=== PATIENT | male | born 1955 | race Caucasian/White ===

== ENCOUNTER 2017-12-22 15:05 | Inpatient (IN) | payer MEDICARE ==
[~2017-12-22] VITALS: Ht 182.9 cm; Wt 175.6 kg
[2017-12-22 15:41] LABS: PCO2 Arterial 73.2 mmHg (35-45); PO2 Arterial 49.7 mmHg (80-100); pH Blood Arterial 7.33 (7.35-7.45)
[2017-12-22 15:49] LABS: BASOPHILS ABSOLUTE AUTO 0.02 K/mm3 (0.00-0.23); BASOPHILS PERCENT AUTO 0 % (0-2); EOSINOPHILS ABSOLUTE AUTO 0.04 K/mm3 (0.00-0.68); EOSINOPHILS PERCENT AUTO 1 % (0-6); Hematocrit 54.4 % (37.0-53.0); Hemoglobin 16.4 g/dL (13.5-17.5); IMMATURE GRAN ABSOLUTE AUTO 0.05 K/mm3 (0.00-0.10); IMMATURE GRAN PERCENT AUTO 1 % (0-1); LYMPHOCYTES ABSOLUTE AUTO 1.99 K/mm3 (0.84-5.20); LYMPHOCYTES PERCENT AUTO 27 % (21-46); MONOCYTES PERCENT AUTO 8 % (4-13); Mean Corpuscular HGB 28.8 pg (26.0-34.0); Mean Corpuscular HGB Conc 30.1 g/dL (31.5-36.5); Mean Corpuscular Volume 95 fL (80-100); NEUTROPHILS ABSOLUTE AUTO 4.71 K/mm3 (1.96-9.15); NEUTROPHILS PERCENT AUTO 64 % (41-73); Platelet Count 171 K/mm3 (150-400); RDW Coefficient Variation 13.7 % (11.7-14.2); RDW Standard Deviation 48.6 fL (35.1-46.3); White Blood Cell Count 7.41 K/mm3 (4.00-11.30)
[2017-12-22 16:14] LABS: Alanine Aminotransfer (ALT/SGP 42 U/L (12-78); Albumin, Blood 3.3 g/dL (3.4-5.0); Albumin/Globulin Ratio 0.7 (0.8-1.8); Alk Phos 85 U/L (50-136); Anion Gap 3 mmol/L (6-16); Aspartate Aminotrans (AST/SGOT 34 U/L (12-37); Bilirubin, Total 0.7 mg/dL (0.1-1.0); Blood Urea Nitrogen 12 mg/dL (8-24); Bun/Creatinine Ratio 13.1 (12.0-20.0); CO2, Blood 37 mmol/L (21-32); Calcium, Blood 9.1 mg/dL (8.5-10.1); Chloride, Blood 97 mmol/L (98-108); Creatinine, Blood 0.92 mg/dL (0.60-1.20); Glomerular Filtration Rate >60 (60-); Glucose, Blood 124 mg/dL (70-99); Potassium, Blood 4.3 mmol/L (3.5-5.5); Sodium, Blood 137 mmol/L (136-145); Total Protein, Blood 8.3 g/dL (6.4-8.2); Troponin I <0.015 ng/mL (0.000-0.040)
[2017-12-22] MEDS ORDERED: AMLO10 PO (16:17)
[2017-12-22] MEDS ORDERED: BENA20 PO (16:18)
[2017-12-22 19:12] LABS: Influenza A Positive (NEGATIVE); Influenza B Positive (NEGATIVE)
[2017-12-23 04:41] LABS: PCO2 Arterial 70.8 mmHg (35-45); PO2 Arterial 59.8 mmHg (80-100); pH Blood Arterial 7.36 (7.35-7.45)
[2017-12-23 04:48] LABS: BASOPHILS ABSOLUTE AUTO 0.01 K/mm3 (0.00-0.23); BASOPHILS PERCENT AUTO 0 % (0-2); EOSINOPHILS PERCENT AUTO 0 % (0-6); Hematocrit 51.9 % (37.0-53.0); IMMATURE GRAN ABSOLUTE AUTO 0.02 K/mm3 (0.00-0.10); IMMATURE GRAN PERCENT AUTO 0 % (0-1); LYMPHOCYTES ABSOLUTE AUTO 0.86 K/mm3 (0.84-5.20); LYMPHOCYTES PERCENT AUTO 15 % (21-46); MONOCYTES ABSOLUTE AUTO 0.06 K/mm3 (0.16-1.47); MONOCYTES PERCENT AUTO 1 % (4-13); Mean Corpuscular HGB 28.7 pg (26.0-34.0); Mean Corpuscular HGB Conc 30.8 g/dL (31.5-36.5); Mean Corpuscular Volume 93 fL (80-100); Mean Platelet Volume 9.5 fL (9.1-12.4); NEUTROPHILS ABSOLUTE AUTO 4.79 K/mm3 (1.96-9.15); NEUTROPHILS PERCENT AUTO 84 % (41-73); Platelet Count 148 K/mm3 (150-400); RDW Coefficient Variation 13.5 % (11.7-14.2); RDW Standard Deviation 46.4 fL (35.1-46.3); Red Blood Cell Count 5.57 M/mm3 (4.30-5.90); White Blood Cell Count 5.74 K/mm3 (4.00-11.30)
[2017-12-23 05:29] LABS: Alanine Aminotransfer (ALT/SGP 38 U/L (12-78); Albumin, Blood 2.9 g/dL (3.4-5.0); Albumin/Globulin Ratio 0.6 (0.8-1.8); Alk Phos 71 U/L (50-136); Anion Gap 7 mmol/L (6-16); Aspartate Aminotrans (AST/SGOT 44 U/L (12-37); Bilirubin, Total 0.7 mg/dL (0.1-1.0); Blood Urea Nitrogen 14 mg/dL (8-24); Bun/Creatinine Ratio 20.5 (12.0-20.0); CO2, Blood 30 mmol/L (21-32); Calcium, Blood 8.8 mg/dL (8.5-10.1); Chloride, Blood 98 mmol/L (98-108); Creatinine, Blood 0.68 mg/dL (0.60-1.20); Glomerular Filtration Rate >60 (60-); Glucose, Blood 141 mg/dL (70-99); Potassium, Blood 5.4 mmol/L (3.5-5.5); Sodium, Blood 135 mmol/L (136-145); Total Protein, Blood 7.9 g/dL (6.4-8.2)
[2017-12-24] MEDS ORDERED: ALBU2.5V5 NEB (12:38)
[2017-12-24] MEDS ORDERED: BUDE.5 NEB (12:39)
[2017-12-24] MEDS ORDERED: GUAI600T33 PO (12:45)
[2017-12-24] MEDS ORDERED: OSEL75CA PO (12:47)
[2017-12-24] MEDS ORDERED: CEFU50SU PO (12:48)
== END 2017-12-24 14:00 | disposition home or self-care (01) | DRG 193 ==
LOC: ER 15:05 → PCU 17:44
PROVIDERS: Family Medicine; Internal Medicine
PROC: 5A09357 Assistance with Respiratory Ventilation, Less than 24 Consecutive Hours, Continuous Positive Airway Pressure (ICD-10-PCS; principal; 2017-12-22)
DX: J10.1 Influenza due to other identified influenza virus with other respiratory manifestations (principal); J96.21 Acute and chronic respiratory failure with hypoxia; J96.22 Acute and chronic respiratory failure with hypercapnia; E66.2 Morbid (severe) obesity with alveolar hypoventilation; Z68.43 Body mass index [BMI] 50.0-59.9, adult; J45.909 Unspecified asthma, uncomplicated; G47.33 Obstructive sleep apnea (adult) (pediatric); I10 Essential (primary) hypertension; I87.2 Venous insufficiency (chronic) (peripheral); Z79.899 Other long term (current) drug therapy
CPT/HCPCS: 36415; 36600; 71045; 71260; 80053; 82803; 83880; 84484; 85025; 87070; 87205; 87804; 93005; 93010; 93306; 94640; 94644; 94660; 94762; 96365; 96375; 99285; J1650; J1940; J1956; J2930; Q9967

== ENCOUNTER → 2019-01-10 | Outpatient (CLI) | payer MEDICARE ==
[~2019-01-10] MED LIST: ALBU2.5V5 NEB; AMLO10 PO; BENA20 PO; BUDE.5 NEB; CEFU50SU PO; GUAI600T33 PO; OSEL75CA PO
== END ==
LOC: LAB SHORT 13:56 → LAB EV 13:56
DX: H10.33 Unspecified acute conjunctivitis, bilateral (principal)
CPT/HCPCS: 87070; 87205

== ENCOUNTER 2021-04-11 07:38 | Day surgery (SDC) | payer MEDICARE ==
[~2021-04-11] VITALS: Ht 180.3 cm; Wt 180.0 kg
[~2021-04-11 07:38] MED LIST changes: +MULVITA PO
--- NOTE | 2021-04-11 08:17 | NUR ---
History, Chart, Medications and Allergies reviewed before start of procedure. Lungs clear T/O to Auscultation. Patient confirms NPO status and agrees with scheduled surgery. Pre-Op teaching done. Pt verbalizes understanding. Patient States Post-Procedure ride home has been arranged. Patient states colon prep results clear.
--- NOTE | 2021-04-11 08:55 | NUR ---
04/11/21 0855 JONNA KIMBALL History, Chart, Medications and Allergies reviewed before start of procedure. 3-LEAD EKG REVIEWED WITH PHYSICIAN PRIOR TO START OF PROCEDURE. O2 VIA NON REBREATHER INTACT THROUGHOUT SEDATION/PROCEDURE. MONITOR INTACT WITH CONTINUOUS PULSE OXIMETRY AND INTERMITTENT BP. MAC WITH DR. MAK.
--- NOTE | 2021-04-11 10:16 | NUR ---
Patient up to Ambulate independently. Gait steady. Discharge instructions reviewed with patient. Patient verbalizes understanding. Copy given to patient to take home. Discharged via wheelchair to private car for ride home WITH .
== END 2021-04-11 23:13 | disposition home or self-care (01) ==
LOC: ORSCMMR 07:38 → ORD 09:15 → ORSCMMR 09:15
PROVIDERS: Internal Medicine Gastroenterology
PROC: 0DBN8ZX Excision of Sigmoid Colon, Via Natural or Artificial Opening Endoscopic, Diagnostic (ICD-10-PCS; principal; 2021-04-11 09:15)
PROC: 0DBM8ZX Excision of Descending Colon, Via Natural or Artificial Opening Endoscopic, Diagnostic (ICD-10-PCS; principal; 2021-04-11 09:15)
PROC: 0DBH8ZX Excision of Cecum, Via Natural or Artificial Opening Endoscopic, Diagnostic (ICD-10-PCS; principal; 2021-04-11 09:15)
PROC: 0DBL8ZX Excision of Transverse Colon, Via Natural or Artificial Opening Endoscopic, Diagnostic (ICD-10-PCS; principal; 2021-04-11 09:15)
DX: Z12.11 Encounter for screening for malignant neoplasm of colon (principal); D12.0 Benign neoplasm of cecum; D12.3 Benign neoplasm of transverse colon; D12.4 Benign neoplasm of descending colon; Z85.038 Personal history of other malignant neoplasm of large intestine; Z80.0 Family history of malignant neoplasm of digestive organs; E66.01 Morbid (severe) obesity due to excess calories; Z68.43 Body mass index [BMI] 50.0-59.9, adult; I10 Essential (primary) hypertension; G47.33 Obstructive sleep apnea (adult) (pediatric); Z79.899 Other long term (current) drug therapy
CPT/HCPCS: 88305; 93005; 93010; J2704; J7120

== ENCOUNTER 2021-12-04 06:40 | Day surgery (SDC) | payer MEDICARE ==
[~2021-12-04] VITALS: Ht 182.9 cm; Wt 171.1 kg
--- NOTE | 2021-12-04 08:09 | NUR ---
12/04/21 0809 JONNA KIMBALL History, Chart, Medications and Allergies reviewed before start of procedure. 3-LEAD EKG REVIEWED WITH PHYSICIAN PRIOR TO START OF PROCEDURE. MONITOR INTACT WITH CONTINUOUS PULSE OXIMETRY AND INTERMITTENT BP. O2 VIA NONREBREATHER INTACT THROUGHOUT SEDATION/PROCEDURE. GENERAL WITH DR. BRAMBILA.
--- NOTE | 2021-12-04 08:50 | NUR ---
PT TOLERATING PO FLUIDS, REQUESTING TO GO HOME.
--- NOTE | 2021-12-04 09:06 | NUR ---
Patient up to Ambulate independently. Gait steady. Discharge instructions reviewed with patient. Patient verbalizes understanding. Copy given to patient to take home. Patient States Post-Procedure ride home has been arranged. Discharged via wheelchair to private car for ride home. ALL BELONGINGS RETURNED TO PATIENT.
== END 2021-12-05 22:57 | disposition home or self-care (01) ==
LOC: ORSCMMR 06:40 → ORD 08:00 → ORSCMMR 12-05 22:57
PROVIDERS: Internal Medicine Gastroenterology
PROC: 0DBM8ZX Excision of Descending Colon, Via Natural or Artificial Opening Endoscopic, Diagnostic (ICD-10-PCS; principal; 2021-12-04 08:00)
PROC: 0DBH8ZX Excision of Cecum, Via Natural or Artificial Opening Endoscopic, Diagnostic (ICD-10-PCS; principal; 2021-12-04 08:00)
DX: Z85.038 Personal history of other malignant neoplasm of large intestine (principal); D12.4 Benign neoplasm of descending colon; D12.0 Benign neoplasm of cecum; Z80.0 Family history of malignant neoplasm of digestive organs; E66.01 Morbid (severe) obesity due to excess calories; Z68.43 Body mass index [BMI] 50.0-59.9, adult; I10 Essential (primary) hypertension; G47.33 Obstructive sleep apnea (adult) (pediatric); Z79.899 Other long term (current) drug therapy
CPT/HCPCS: 88305; J2704; J7120

== ENCOUNTER 2023-04-04 15:14 | Observation (INO) | payer MEDICARE ==
[~2023-04-04] VITALS: Ht 182.9 cm; Wt 182.3 kg
[2023-04-04 15:46] LABS: BASOPHILS ABSOLUTE AUTO 0.08 K/mm3 (0.00-0.23); BASOPHILS PERCENT AUTO 0 % (0-2); EOSINOPHILS ABSOLUTE AUTO 0.01 K/mm3 (0.00-0.68); EOSINOPHILS PERCENT AUTO 0 % (0-6); Hematocrit 48.2 % (37.0-53.0); IMMATURE GRAN ABSOLUTE AUTO 0.16 K/mm3 (0.00-0.10); IMMATURE GRAN PERCENT AUTO 1 % (0-1); LYMPHOCYTES ABSOLUTE AUTO 0.55 K/mm3 (0.84-5.20); LYMPHOCYTES PERCENT AUTO 2 % (21-46); MONOCYTES ABSOLUTE AUTO 1.33 K/mm3 (0.16-1.47); MONOCYTES PERCENT AUTO 6 % (4-13); Mean Corpuscular HGB 29.4 pg (26.0-34.0); Mean Corpuscular HGB Conc 33.2 g/dL (31.5-36.5); Mean Corpuscular Volume 89 fL (80-100); Mean Platelet Volume 9.3 fL (9.1-12.4); NEUTROPHILS ABSOLUTE AUTO 22.03 K/mm3 (1.96-9.15); NEUTROPHILS PERCENT AUTO 91 % (41-73); Platelet Count 196 K/mm3 (150-400); RDW Coefficient Variation 13.4 % (11.7-14.2); RDW Standard Deviation 43.7 fL (35.1-46.3); Red Blood Cell Count 5.44 M/mm3 (4.30-5.90); White Blood Cell Count 24.16 K/mm3 (4.00-11.30)
[2023-04-04 16:01] LABS: Albumin, Blood 3.7 g/dL (3.4-5.0); Albumin/Globulin Ratio 0.9 (0.8-1.8); Bilirubin, Total 0.9 mg/dL (0.1-1.0); Bun/Creatinine Ratio 14.7 (12.0-20.0); Calcium, Blood 9.4 mg/dL (8.5-10.1); Creatinine, Blood 0.95 mg/dL (0.60-1.20); Potassium, Blood 3.7 mmol/L (3.5-5.5); Total Protein, Blood 7.7 g/dL (6.4-8.2)
[2023-04-04 16:46] LABS: Source, Urine Voided
[2023-04-04 16:52] LABS: Appearance, Urine Hazy (Clear); Bilirubin, Urine Neg (Neg); Blood, Urine 3+ (Neg); Color, Urine Yellow (P-Yellow); Glucose Qualitative, Urine Neg (Neg); Ketones, Urine 1+ (Neg); Leukocyte Esterase, Urine 3+ (Neg); Nitrite, Urine Neg (Neg); Protein, Urine 3+ (Neg); Specific Gravity, Urine 1.015 (1.003-1.022); Urobilinogen, Urine NORM (Normal)
[2023-04-04 17:34] LABS: White Blood Cells, Urine 50-100 /hpf (0-5)
[2023-04-04 17:35] LABS: Bacteria Many /hpf; Squamous Epithelial Cells Rare /hpf (Few)
[2023-04-04 21:19] VITALS: BP 148/79
[2023-04-05 03:37] VITALS: BP 127/77
[2023-04-05 05:02] LABS: BASOPHILS ABSOLUTE AUTO 0.06 K/mm3 (0.00-0.23); BASOPHILS PERCENT AUTO 0 % (0-2); EOSINOPHILS PERCENT AUTO 0 % (0-6); Hematocrit 44.9 % (37.0-53.0); Hemoglobin 15.1 g/dL (13.5-17.5); IMMATURE GRAN ABSOLUTE AUTO 0.13 K/mm3 (0.00-0.10); IMMATURE GRAN PERCENT AUTO 1 % (0-1); LYMPHOCYTES ABSOLUTE AUTO 1.22 K/mm3 (0.84-5.20); LYMPHOCYTES PERCENT AUTO 5 % (21-46); MONOCYTES ABSOLUTE AUTO 1.12 K/mm3 (0.16-1.47); MONOCYTES PERCENT AUTO 5 % (4-13); Mean Corpuscular HGB 29.8 pg (26.0-34.0); Mean Corpuscular HGB Conc 33.6 g/dL (31.5-36.5); Mean Corpuscular Volume 89 fL (80-100); Mean Platelet Volume 9.5 fL (9.1-12.4); NEUTROPHILS ABSOLUTE AUTO 20.54 K/mm3 (1.96-9.15); NEUTROPHILS PERCENT AUTO 89 % (41-73); Platelet Count 181 K/mm3 (150-400); RDW Coefficient Variation 13.7 % (11.7-14.2); RDW Standard Deviation 44.5 fL (35.1-46.3); Red Blood Cell Count 5.06 M/mm3 (4.30-5.90); White Blood Cell Count 23.07 K/mm3 (4.00-11.30)
[2023-04-05 05:20] LABS: Albumin, Blood 3.2 g/dL (3.4-5.0); Albumin/Globulin Ratio 0.8 (0.8-1.8); Bilirubin, Total 1.1 mg/dL (0.1-1.0); Bun/Creatinine Ratio 16.5 (12.0-20.0); Creatinine, Blood 0.79 mg/dL (0.60-1.20); Potassium, Blood 3.8 mmol/L (3.5-5.5); Total Protein, Blood 7.2 g/dL (6.4-8.2)
--- NOTE | 2023-04-05 05:57 | NUR ---
ADMITTED FROM ED AROUND 2100 LAST NIGHT. DENIES SKIN ISSUES, NONE NOTED. AO, INDEPENDENT, ANXIOUS, PLEASANT. FREQUEMCY WITH VOIDING. TELE NS IN 'S. PT STATES HE FEELS SYMPTOMS ARE IMPROVING COMPARED TO ARRIVAL AT ED.
[2023-04-05 07:39] VITALS: BP 158/93
[2023-04-05] MEDS ORDERED: LEVFLO500 PO (15:45)
[2023-04-05] MEDS ORDERED: TYLENOL325 M1 PO (15:45)
[2023-04-05] MEDS ORDERED: VISBIOME 112.51 EACH PO (15:46)
--- NOTE | 2023-04-05 16:18 | NUR ---
DISCHARGE SUMMARY DISCHARGE, MEDICATION, AND FOLLOWUP INSTRUCTIONS GIVEN TO PT. PT VOICED COMPLETE UNDERSTANDING AND HAS NO QUESTIONS AT THIS TIME. IV REMOVED WITH CATHETER TIP INTACT. PT WHEELED DOWN TO RIDE.
== END 2023-04-05 16:08 | disposition home or self-care (01) ==
LOC: ER 15:14 → MEDS 15:15 → ERHOLD 15:15 → MEDS 21:05
PROVIDERS: Student in an Organized Health Care Education/Training Program; ADMIT Internal Medicine
DX: A41.9 Sepsis, unspecified organism (principal); N39.0 Urinary tract infection, site not specified; B96.89 Other specified bacterial agents as the cause of diseases classified elsewhere; I10 Essential (primary) hypertension; R00.0 Tachycardia, unspecified; E66.01 Morbid (severe) obesity due to excess calories; G47.33 Obstructive sleep apnea (adult) (pediatric)
CPT/HCPCS: 36415; 80053; 81001; 83605; 83880; 85025; 87040; 87077; 87086; 87186; 94660; 96361; 96372; 96374; 99284-25; A9270; G0378; J0696; J1650; J7030

== ENCOUNTER 2024-01-26 18:18 | Inpatient (IN) | payer MEDICARE ==
[~2024-01-26] VITALS: Ht 182.9 cm; Wt 178.3 kg
[~2024-01-26 18:18] MED LIST changes: +CIPR500 PO; +LEVFLO500 PO; +LISI20 PO; +METO50ER PO; +METR500 PO; +TYLENOL325 M1 PO; +VISBIOME 112.51 EACH PO
[2024-01-26 19:26] LABS: BASOPHILS ABSOLUTE AUTO 0.06 K/mm3 (0.00-0.23); BASOPHILS PERCENT AUTO 0 % (0-2); EOSINOPHILS ABSOLUTE AUTO 0.27 K/mm3 (0.00-0.68); EOSINOPHILS PERCENT AUTO 1 % (0-6); Hematocrit 27.2 % (37.0-53.0); Hemoglobin 8.6 g/dL (13.5-17.5); IMMATURE GRAN ABSOLUTE AUTO 0.44 K/mm3 (0.00-0.10); IMMATURE GRAN PERCENT AUTO 2 % (0-1); LYMPHOCYTES ABSOLUTE AUTO 1.66 K/mm3 (0.84-5.20); LYMPHOCYTES PERCENT AUTO 7 % (21-46); MONOCYTES ABSOLUTE AUTO 1.02 K/mm3 (0.16-1.47); MONOCYTES PERCENT AUTO 4 % (4-13); Mean Corpuscular HGB 29.4 pg (26.0-34.0); Mean Corpuscular HGB Conc 31.6 g/dL (31.5-36.5); Mean Corpuscular Volume 93 fL (80-100); Mean Platelet Volume 8.6 fL (9.1-12.4); NEUTROPHILS ABSOLUTE AUTO 19.64 K/mm3 (1.96-9.15); NEUTROPHILS PERCENT AUTO 85 % (41-73); NRBC ABSOLUTE 0.04 K/mm3 (0.00-0.02); NRBC Auto 0.2 /100 WBC (0.0-0.2); Platelet Count 373 K/mm3 (150-400); RDW Standard Deviation 49.3 fL (35.1-46.3); Red Blood Cell Count 2.93 M/mm3 (4.30-5.90); White Blood Cell Count 23.09 K/mm3 (4.00-11.30)
[2024-01-26 19:44] LABS: Albumin, Blood 2.1 g/dL (3.4-5.0); Albumin/Globulin Ratio 0.5 (0.8-1.8); Bilirubin, Total 0.4 mg/dL (0.1-1.0); Bun/Creatinine Ratio 12.2 (12.0-20.0); Calcium, Blood 8.6 mg/dL (8.5-10.1); Creatinine, Blood 0.74 mg/dL (0.60-1.20); Globulin, Blood 4.6 g/dL (2.2-4.0); Potassium, Blood 3.6 mmol/L (3.5-5.5); Total Protein, Blood 6.7 g/dL (6.4-8.2)
[2024-01-26] MEDS ORDERED: BENAZEPRIL HCL20 M4 PO (20:02)
[2024-01-26] MEDS ORDERED: TAMSULOSIN HCL0.4 M1 PO (20:03)
[2024-01-26 21:20] LABS: Source, Urine Clean Catch
[2024-01-26 21:23] LABS: Appearance, Urine Clear (Clear); Bilirubin, Urine Neg (Neg); Blood, Urine Neg (Neg); Color, Urine Yellow (P-Yellow); Glucose Qualitative, Urine Neg (Neg); Ketones, Urine Neg (Neg); Leukocyte Esterase, Urine Neg (Neg); Nitrite, Urine Neg (Neg); Protein, Urine Neg (Neg); Urobilinogen, Urine NORM (Normal)
[2024-01-26] MEDS ORDERED: Piperacillin/Tazobactam Sod 3.375 GM in NS 100 ML IV ONE (21:30)
[2024-01-26] MEDS ORDERED: NS 1,000 ML IV SCH ×2 (21:35→21:50)
[2024-01-26] MEDS ORDERED: Ondansetron HCl 2 MG / ML 2ML Vial IV PRN (22:35)
[2024-01-26] MEDS ORDERED: FentaNYL Citrate 50 MCG/ML 2 ML Injection IV PRN (22:35)
[2024-01-26] MEDS ORDERED: NS 1,000 ML IV ONE (22:35)
[2024-01-26 23:11] VITALS: BP 178/79
[2024-01-27 00:01] LABS: International Normalized Ratio 1.1; Prothrombin Time Results 11.7 Sec (9.7-11.5)
--- NOTE | 2024-01-27 00:13 | NUR ---
ARRIVAL PT NEW ADMIT FROM ER W/PERF DIVERTIC. PT ARRIVED VIA GOURNEY. A/OX4, ON 2L VIA NC. DENIES ABD PAIN OR NAUSEA. VERY QUIET BOWEL TONES NOTED, PT REPORTS HE CANNOT REMEMBER IF HE HAS BEEN PASSING GAS D/T THE NEW ONSET INCONTINENCE. REPORT INCONTINENCE OF STOOL AND URINE, AND THAT IT STARTED BEFORE HE WAS D/C'ED FROM HIS RECENT ADMISSION. STOOL NOTED TO BE MADE UP OF MUCUS, WHITE AND YELLOW. THERE IS ALSO DARK STREAKS AND RED STREAKS NOTED IN STOOL. PT DENIES SOB OR CP. EDEMA NOTED IN BLE, PT REPORTS THIS IS ALSO NEW FROM LAST ADMISSION. EDUCATED ABOUT NPO STATUS AND SURGICAL CONSULT IN AM. VSS, HTN NOTED AFTER PT AMBULATED. PT REMAINS ASYMPTOMATIC.
[2024-01-27 02:25] VITALS: BP 129/58
[2024-01-27 04:11] LABS: BASOPHILS ABSOLUTE AUTO 0.04 K/mm3 (0.00-0.23); BASOPHILS PERCENT AUTO 0 % (0-2); EOSINOPHILS ABSOLUTE AUTO 0.25 K/mm3 (0.00-0.68); EOSINOPHILS PERCENT AUTO 1 % (0-6); Hematocrit 24.7 % (37.0-53.0); Hemoglobin 7.9 g/dL (13.5-17.5); IMMATURE GRAN ABSOLUTE AUTO 0.22 K/mm3 (0.00-0.10); IMMATURE GRAN PERCENT AUTO 1 % (0-1); LYMPHOCYTES ABSOLUTE AUTO 1.72 K/mm3 (0.84-5.20); LYMPHOCYTES PERCENT AUTO 10 % (21-46); MONOCYTES ABSOLUTE AUTO 0.97 K/mm3 (0.16-1.47); MONOCYTES PERCENT AUTO 6 % (4-13); Mean Corpuscular HGB 29.8 pg (26.0-34.0); Mean Corpuscular Volume 93 fL (80-100); Mean Platelet Volume 8.8 fL (9.1-12.4); NEUTROPHILS ABSOLUTE AUTO 14.35 K/mm3 (1.96-9.15); NEUTROPHILS PERCENT AUTO 82 % (41-73); NRBC ABSOLUTE 0.03 K/mm3 (0.00-0.02); NRBC Auto 0.2 /100 WBC (0.0-0.2); Platelet Count 323 K/mm3 (150-400); RDW Standard Deviation 49.6 fL (35.1-46.3); Red Blood Cell Count 2.65 M/mm3 (4.30-5.90); White Blood Cell Count 17.55 K/mm3 (4.00-11.30)
[2024-01-27 04:33] LABS: Albumin, Blood 1.9 g/dL (3.4-5.0); Albumin/Globulin Ratio 0.5 (0.8-1.8); Bilirubin, Total 0.5 mg/dL (0.1-1.0); Bun/Creatinine Ratio 9.7 (12.0-20.0); Calcium, Blood 7.9 mg/dL (8.5-10.1); Creatinine, Blood 0.72 mg/dL (0.60-1.20); Globulin, Blood 3.9 g/dL (2.2-4.0); Potassium, Blood 3.5 mmol/L (3.5-5.5); Total Protein, Blood 5.8 g/dL (6.4-8.2)
[2024-01-27] MEDS ORDERED: Acetaminophen 325 MG TABLET PO PRN (05:50)
[2024-01-27] MEDS ORDERED: Piperacillin/Tazobactam Sod 4.5 GM in NS 100 ML IV SCH (06:00)
--- NOTE | 2024-01-27 06:08 | NUR ---
SHIFT SUMMARY VSS, TELE READS SR 90'S. PT GOT LITTLE SLEEP T/O THE NIGHT. NO ACUTE EVENTS NOTED SINCE ADMISSION. MULTIPLE INCONTINENT VOIDS AND STOOLS NOTED T/O THE NIGHT. AMBULATING W/ A SBA. HAS REMAINED NPO. AWAITING SURGICAL CONSULT THIS AM.
[2024-01-27] MEDS ORDERED: Albumin (Human) 25gm/100ml 100 ML IV ONE (06:45)
[2024-01-27 07:55] VITALS: BP 149/70
[2024-01-27] MEDS ORDERED: Lisinopril 20 MG Tab PO SCH (09:00)
[2024-01-27] MEDS ORDERED: Tamsulosin HCl 0.4 MG Cap PO SCH (09:00)
[2024-01-27] MEDS ORDERED: AmLODIPine Besylate 5 MG Tab PO SCH (09:00)
[2024-01-27] MEDS ORDERED: Metoprolol Succinate 50 MG TABCR PO SCH (09:00)
[2024-01-27] MEDS ORDERED: Lactobacil 2-S.Thermo-Bifido 1 1 Cap PO SCH (09:00)
[2024-01-27] MEDS ORDERED: NS 250 ML IV PRN (11:05)
[2024-01-27 13:48] VITALS: BP 126/83
--- NOTE | 2024-01-27 16:50 | NUR ---
SUMMARY PT HAD TEMP OF 100.2 THIS AFTERNOON, GAVE TYLENOL PER ORDERS AND IS NOW AFEBRILE. DENIES PAIN. VOIDING SMALL AMOUNTS FREQUENTLY, BS DID NOT SHOW RETENTION. TURNING OVER CARE TO CAMILLE Evangelista RN.
--- NOTE | 2024-01-27 16:51 | NUR ---
THIS NURSE IS ASSUMING CARE AFTER GETTING REPORT FROM COCO ROBERTO.
[2024-01-27 19:23] VITALS: BP 137/71
[2024-01-27] MEDS ORDERED: Temazepam 15 MG Cap PO ONE (23:30)
--- NOTE | 2024-01-28 04:15 | NUR ---
SHIFT SUMMARY PT RESTED DURING THE NIGHT. DENIES ANY PAIN. PT HAD FREQUENT URINATING OF ATLEAST 100MLS, Q45 MIN. BLADDER SCANNED FOR A PVR AND NOTHING SHOWED. PT HAD BM TONIGHT, LIQUID. NPO SINCE MIDNIGHT FOR DRAIN PLACEMENT TODAY. NO OTHER CONCERNS AT THIS TIME, CALL LIGHT WITHIN REACH
[2024-01-28 04:23] VITALS: BP 116/54
[2024-01-28 04:32] LABS: BASOPHILS ABSOLUTE AUTO 0.05 K/mm3 (0.00-0.23); BASOPHILS PERCENT AUTO 0 % (0-2); EOSINOPHILS ABSOLUTE AUTO 0.32 K/mm3 (0.00-0.68); EOSINOPHILS PERCENT AUTO 2 % (0-6); Hematocrit 24.2 % (37.0-53.0); Hemoglobin 7.6 g/dL (13.5-17.5); IMMATURE GRAN ABSOLUTE AUTO 0.13 K/mm3 (0.00-0.10); IMMATURE GRAN PERCENT AUTO 1 % (0-1); LYMPHOCYTES ABSOLUTE AUTO 1.39 K/mm3 (0.84-5.20); LYMPHOCYTES PERCENT AUTO 10 % (21-46); MONOCYTES ABSOLUTE AUTO 0.77 K/mm3 (0.16-1.47); MONOCYTES PERCENT AUTO 6 % (4-13); Mean Corpuscular HGB 29.5 pg (26.0-34.0); Mean Corpuscular HGB Conc 31.4 g/dL (31.5-36.5); Mean Corpuscular Volume 94 fL (80-100); Mean Platelet Volume 8.4 fL (9.1-12.4); NEUTROPHILS ABSOLUTE AUTO 10.86 K/mm3 (1.96-9.15); NEUTROPHILS PERCENT AUTO 80 % (41-73); NRBC ABSOLUTE 0.04 K/mm3 (0.00-0.02); NRBC Auto 0.3 /100 WBC (0.0-0.2); Platelet Count 315 K/mm3 (150-400); RDW Coefficient Variation 15.1 % (11.7-14.2); RDW Standard Deviation 50.3 fL (35.1-46.3); Red Blood Cell Count 2.58 M/mm3 (4.30-5.90); White Blood Cell Count 13.52 K/mm3 (4.00-11.30)
[2024-01-28 05:02] LABS: Albumin, Blood 2.1 g/dL (3.4-5.0); Albumin/Globulin Ratio 0.5 (0.8-1.8); Bilirubin, Total 0.4 mg/dL (0.1-1.0); Bun/Creatinine Ratio 12.8 (12.0-20.0); Calcium, Blood 8.1 mg/dL (8.5-10.1); Creatinine, Blood 0.7 mg/dL (0.60-1.20); Globulin, Blood 4.1 g/dL (2.2-4.0); Potassium, Blood 3.7 mmol/L (3.5-5.5); Total Protein, Blood 6.2 g/dL (6.4-8.2)
[2024-01-28 07:41] VITALS: BP 126/66
[2024-01-28 14:12] VITALS: BP 126/58
--- NOTE | 2024-01-28 18:35 | NUR ---
SHIFT SUMMARY S/P CT GUIDED INTRABDOMINAL DRAIN PLACED W/GREEN THICK OUTPUT, A&OX4, VSS/2LNC AT REST/BIOX SATS >92%/TELE NSR 71 BPM, NPO, AMB SBA CALLS APPROPRIATELY, VOIDING/BMs - BRP, DENIES PAIN. WILL REPORT TO ONCOMING NOC RN.
[2024-01-28 20:13] VITALS: BP 116/74
[2024-01-28 23:45] VITALS: BP 138/76
[2024-01-29 02:16] VITALS: BP 136/66
--- NOTE | 2024-01-29 05:10 | NUR ---
SHIFT SUMMARY PT RESTED DURING THE SHIFT. DENIES ANY PAIN. USING THE BATHROOM WITH SBA. TOLERATING CLEAR LIQUIDS. PASSING GAS, HAVING BM'S. VOIDING. URESIL DRAIN OUTPUTTING PURULENT DRAINAGE. SITE OF DRAIN IS C/D/I. VSS. NO OTHER CONCERNS AT THIS TIME, CALL LIGHT WITHIN REACH
[2024-01-29 05:21] LABS: BASOPHILS ABSOLUTE AUTO 0.04 K/mm3 (0.00-0.23); BASOPHILS PERCENT AUTO 0 % (0-2); EOSINOPHILS ABSOLUTE AUTO 0.35 K/mm3 (0.00-0.68); EOSINOPHILS PERCENT AUTO 3 % (0-6); Hematocrit 25.5 % (37.0-53.0); Hemoglobin 7.8 g/dL (13.5-17.5); IMMATURE GRAN ABSOLUTE AUTO 0.13 K/mm3 (0.00-0.10); IMMATURE GRAN PERCENT AUTO 1 % (0-1); LYMPHOCYTES PERCENT AUTO 14 % (21-46); MONOCYTES ABSOLUTE AUTO 0.65 K/mm3 (0.16-1.47); MONOCYTES PERCENT AUTO 6 % (4-13); Mean Corpuscular HGB 29.3 pg (26.0-34.0); Mean Corpuscular HGB Conc 30.6 g/dL (31.5-36.5); Mean Corpuscular Volume 96 fL (80-100); Mean Platelet Volume 8.6 fL (9.1-12.4); NEUTROPHILS ABSOLUTE AUTO 8.35 K/mm3 (1.96-9.15); NEUTROPHILS PERCENT AUTO 76 % (41-73); NRBC ABSOLUTE 0.04 K/mm3 (0.00-0.02); NRBC Auto 0.4 /100 WBC (0.0-0.2); Platelet Count 349 K/mm3 (150-400); RDW Coefficient Variation 15.2 % (11.7-14.2); RDW Standard Deviation 52.9 fL (35.1-46.3); Red Blood Cell Count 2.66 M/mm3 (4.30-5.90); White Blood Cell Count 11.02 K/mm3 (4.00-11.30)
[2024-01-29 05:58] LABS: Bun/Creatinine Ratio 10.5 (12.0-20.0); Calcium, Blood 8.4 mg/dL (8.5-10.1); Creatinine, Blood 0.76 mg/dL (0.60-1.20); Potassium, Blood 3.6 mmol/L (3.5-5.5)
[2024-01-29 07:04] VITALS: BP 123/62
[2024-01-29 15:30] VITALS: BP 131/76
--- NOTE | 2024-01-29 18:25 | NUR ---
SHIFT SUMMARY A&O X 4, VSS. IS PLEASANT & COOPERATIVE WITH ALL CARE. IS STDBY ASSIST FOR RESTROOM USE & SAT UP IN CHAIR MAJORITY OF SHIFT. RECLINER PLACED IN ROOM AT BEDSIDE FOR PT TO USE WHEN UP TO CHAIR. DRAIN BAG PLACED & SECURED TO FRONT OF PT'S GOWN BY MD FOR PT & MD TO EASILY VISUALIZE. NO ACUTE CHANGES THIS SHIFT. PT DENIES PAIN, NAUSEA & DYSPNEA. DIET ADV'D, IS TOLERATING FOOD. APPETITE IS GOOD. DRAIN EMPTIED OF 40 MLS LIQUIDY LIGHT BROWN PURULENT DRNG. BED IS LOCKED & IN LOW POSITION, CALL LIGHT WITHIN REACH. PLAN IS LIKELY HOME WHEN CLINICALLY READY.
[2024-01-29 20:08] VITALS: BP 129/67
[2024-01-29] MEDS ORDERED: Melatonin 5 MG Tablet PO SCH (22:40)
[2024-01-30 04:05] LABS: BASOPHILS ABSOLUTE AUTO 0.06 K/mm3 (0.00-0.23); BASOPHILS PERCENT AUTO 1 % (0-2); EOSINOPHILS ABSOLUTE AUTO 0.25 K/mm3 (0.00-0.68); EOSINOPHILS PERCENT AUTO 2 % (0-6); Hemoglobin 8.3 g/dL (13.5-17.5); Mean Corpuscular HGB Conc 30.7 g/dL (31.5-36.5); Mean Corpuscular Volume 94 fL (80-100); Mean Platelet Volume 8.4 fL (9.1-12.4); NRBC ABSOLUTE 0.05 K/mm3 (0.00-0.02); NRBC Auto 0.4 /100 WBC (0.0-0.2); Platelet Count 417 K/mm3 (150-400); RDW Coefficient Variation 15.1 % (11.7-14.2); RDW Standard Deviation 51.5 fL (35.1-46.3); Red Blood Cell Count 2.86 M/mm3 (4.30-5.90); White Blood Cell Count 13.17 K/mm3 (4.00-11.30)
[2024-01-30 04:08] LABS: IMMATURE GRAN ABSOLUTE AUTO 0.17 K/mm3 (0.00-0.10); IMMATURE GRAN PERCENT AUTO 1 % (0-1); LYMPHOCYTES ABSOLUTE AUTO 1.75 K/mm3 (0.84-5.20); LYMPHOCYTES PERCENT AUTO 13 % (21-46); MONOCYTES ABSOLUTE AUTO 0.73 K/mm3 (0.16-1.47); MONOCYTES PERCENT AUTO 6 % (4-13); NEUTROPHILS ABSOLUTE AUTO 10.21 K/mm3 (1.96-9.15); NEUTROPHILS PERCENT AUTO 78 % (41-73)
[2024-01-30 04:23] LABS: Bun/Creatinine Ratio 9.7 (12.0-20.0); Calcium, Blood 8.6 mg/dL (8.5-10.1); Creatinine, Blood 0.83 mg/dL (0.60-1.20); Potassium, Blood 3.9 mmol/L (3.5-5.5)
[2024-01-30 04:25] VITALS: BP 147/69
--- NOTE | 2024-01-30 06:16 | NUR ---
SHIFT SUMMARY NO ACUTE CHANGES OVER NIGHT, PT REMAINS A&OX4, 2L O2 WHILE SLEEPING DUE TO REFUSAL OF CPAP, CONT BIOX IN PLACE, PT DENIES PAIN, DRAIN SECURED, APPROX 45 ML'S BROWN LIQUID DRAINAGE NOTED IN BAG, STAND BY ASSIST, VOIDING WNL, TOLERATING PO INTAKE, ABD REMAINS FIRM/DISTENDED, PT REPORTS PASSING FLATUS, NSR PER TRACTOR TRAILER MECHANIC, ABX INFUSED PER EMAR, PT RESTING QUIETLY AT THIS TIME, CALL LIGHT IN REACH, WCTM & REPORT TO DAY RN
[2024-01-30 07:25] VITALS: BP 105/71
[2024-01-30] MEDS ORDERED: LevoFLOXacin 750 MG Tab PO SCH (12:00)
[2024-01-30] MEDS ORDERED: MetroNIDAZOLE 500 MG Tab PO SCH (12:00)
[2024-01-30 15:25] VITALS: BP 134/70
[2024-01-30 19:31] VITALS: BP 137/71
[2024-01-31 03:20] VITALS: BP 159/84
[2024-01-31 03:44] LABS: BASOPHILS ABSOLUTE AUTO 0.06 K/mm3 (0.00-0.23); BASOPHILS PERCENT AUTO 0 % (0-2); EOSINOPHILS ABSOLUTE AUTO 0.26 K/mm3 (0.00-0.68); EOSINOPHILS PERCENT AUTO 2 % (0-6); Hematocrit 26.1 % (37.0-53.0); Mean Corpuscular HGB 29.2 pg (26.0-34.0); Mean Corpuscular HGB Conc 30.7 g/dL (31.5-36.5); Mean Corpuscular Volume 95 fL (80-100); Mean Platelet Volume 8.1 fL (9.1-12.4); NRBC ABSOLUTE 0.04 K/mm3 (0.00-0.02); NRBC Auto 0.3 /100 WBC (0.0-0.2); Platelet Count 374 K/mm3 (150-400); RDW Coefficient Variation 15.3 % (11.7-14.2); RDW Standard Deviation 51.4 fL (35.1-46.3); Red Blood Cell Count 2.74 M/mm3 (4.30-5.90); White Blood Cell Count 13.53 K/mm3 (4.00-11.30)
[2024-01-31 03:48] LABS: IMMATURE GRAN PERCENT AUTO 2 % (0-1); LYMPHOCYTES ABSOLUTE AUTO 1.79 K/mm3 (0.84-5.20); LYMPHOCYTES PERCENT AUTO 13 % (21-46); MONOCYTES ABSOLUTE AUTO 0.76 K/mm3 (0.16-1.47); MONOCYTES PERCENT AUTO 6 % (4-13); NEUTROPHILS ABSOLUTE AUTO 10.46 K/mm3 (1.96-9.15); NEUTROPHILS PERCENT AUTO 77 % (41-73)
[2024-01-31 04:02] LABS: Bun/Creatinine Ratio 13.3 (12.0-20.0); Calcium, Blood 8.7 mg/dL (8.5-10.1); Creatinine, Blood 0.68 mg/dL (0.60-1.20)
[2024-01-31 07:42] VITALS: BP 128/70
--- NOTE | 2024-01-31 14:33 | NUR ---
DISCHARGE SUMMARY S/P DIVERTIC ABSCESS. TOLERATING ORALS. VSS, TELE & IV REMOVED FROM PT. URESIL DRAIN C/D/I. PT REPORTS NO ABD PAIN AT THIS TIME. DISCHARGE INSTRUCTIONS GIVEN, PT VERBALIZED UNDERSTANDING. ALL PERSONAL BELONGINGS c PATIENT. DISCHARGED VIA WHEELCHAIR TO POV DRIVEN BY S/O.
== END 2024-01-31 14:38 | disposition home health service (06) | DRG 871 ==
LOC: ER 18:18 → SURS 21:50
PROVIDERS: Internal Medicine; Student in an Organized Health Care Education/Training Program; ADMIT Internal Medicine
PROC: 3E03329 Introduction of Other Anti-infective into Peripheral Vein, Percutaneous Approach (ICD-10-PCS; 2024-01-26)
PROC: 0W9G30Z Drainage of Peritoneal Cavity with Drainage Device, Percutaneous Approach (ICD-10-PCS; principal; 2024-01-28)
DX: A41.9 Sepsis, unspecified organism (principal); K65.1 Peritoneal abscess; K57.20 Diverticulitis of large intestine with perforation and abscess without bleeding; N17.9 Acute kidney failure, unspecified; Z68.43 Body mass index [BMI] 50.0-59.9, adult; N40.0 Benign prostatic hyperplasia without lower urinary tract symptoms; I10 Essential (primary) hypertension; G47.33 Obstructive sleep apnea (adult) (pediatric); Z66 Do not resuscitate; I48.0 Paroxysmal atrial fibrillation; R80.9 Proteinuria, unspecified; H90.5 Unspecified sensorineural hearing loss; D64.9 Anemia, unspecified; E66.01 Morbid (severe) obesity due to excess calories; E88.09 Other disorders of plasma-protein metabolism, not elsewhere classified; J44.9 Chronic obstructive pulmonary disease, unspecified
CPT/HCPCS: 36415; 49405; 74177; 80048; 80053; 81003; 83605; 83880; 85025; 85610; 87040; 94760; 94762; 96365-59; 99285-25; A9270; J2543; J3010; J7030; J7050; P9047; Q9967